=== PATIENT | male | born 1985 | race Caucasian/White ===

== ENCOUNTER 2023-01-17 21:47 | Emergency (ER) | payer SELFPAY ==
[2023-01-17] MEDS ORDERED: propofoL 100 ML ONE (21:58)
[2023-01-17] MEDS ORDERED: Sodium Chloride 0.9% 1,000 ML IV ONE ×2 (22:04→23:04)
[2023-01-17 22:12] LABS: BASOPHILS ABSOLUTE AUTO 0.07 K/mm3 (0.01-0.08); BASOPHILS PERCENT AUTO 0.6 % (0.1-1.2); EOSINOPHILS ABSOLUTE AUTO 0.08 K/mm3 (0.04-0.54); EOSINOPHILS PERCENT AUTO 0.7 (0.8-7.0); HEMOGLOBIN 16.5 gm/dl (13.7-17.5); IMMATURE GRAN ABSOLUTE AUTO 0.01 K/mm3 (0.00-0.10); IMMATURE GRAN PERCENT AUTO 0.1 % (<=1.0); LYMPHOCYTES ABSOLUTE AUTO 4.94 K/mm3 (1.32-3.57); LYMPHOCYTES PERCENT AUTO 42.8 % (21.8-53.1); MEAN CORPUSCULAR HGB CONC 33.7 g/dl (32.2-35.5); MEAN CORPUSCULAR VOLUME 89.1 fl (79.0-92.2); MEAN PLATELET VOLUME 10.4 fl (9.4-12.3); MONOCYTES ABSOLUTE AUTO 0.74 K/mm3 (0.30-0.82); MONOCYTES PERCENT AUTO 6.4 % (5.3-12.2); NEUTROPHILS ABSOLUTE AUTO 5.69 K/mm3 (1.78-5.38); NEUTROPHILS PERCENT AUTO 49.4 % (34.0-67.9); PLATELET COUNT,PLT 247 K/mm3 (163-337); WHITE BLOOD CELL COUNT,WBC 11.53 K/mm3 (4.23-9.07)
[2023-01-17] MEDS ORDERED: propofoL 100 ML IV SCH (22:15)
[2023-01-17 22:18] LABS: APPEARANCE,URINE CLEAR (Clear); BILIRUBIN,URINE NEGATIVE (Negative); COLOR,URINE LIGHT YELLOW (Yellow); GLUCOSE,URINE NEGATIVE (Negative); KETONES,URINE NEGATIVE (Negative); LEUKOCYTE ESTERASE,URINE NEGATIVE (Negative); NITRITE,URINE NEGATIVE (Negative); OCCULT BLOOD,URINE NEGATIVE (Negative); PH,URINE 6.5 (5.0-8.0); PROTEIN,URINE NEGATIVE (Negative); UROBILINOGEN,URINE 0.2 (0.2-1.0)
[2023-01-17 22:31] LABS: A/G RATIO 1.1 (1-2); ALBUMIN 4.2 g/dl (3.4-5.0); ANION GAP 14.9 (5-15); BILIRUBIN TOTAL 0.6 mg/dL (0.2-1.0); CALCIUM 8.2 mg/dL (8.5-10.1); CREATININE 0.8 mg/dL (0.7-1.3); EST CRCL DRUG DOSING (CG) 121.67 mL/min; ETHANOL BLOOD MEDICAL 0.37 gm% (0.00); POTASSIUM,K 2.9 mEq/L (3.5-5.1); TSH 1.864 uIU/mL (0.358-3.74)
[2023-01-17 22:32] LABS: BARBITURATE SCREEN,URINE NEGATIVE (CUTOFF=200); BENZODIAZEPINES SCREEN,URINE PRESUMPTIVE POSITIVE (CUTOFF=150); BUPRENORPHINE SCREEN,URINE NEGATIVE (CUTOFF=10); METHADONE SCREEN, URINE NEGATIVE (CUT0FF=200); METHAMPHETAMINES SCREEN, URINE NEGATIVE (CUTOFF=500); OXYCODONE SCREEN,URINE NEGATIVE (CUT0FF=100); PROPOXYPHENE SCREEN,URINE NEGATIVE (CUTOFF=300); THC SCREEN,URINE 20 NG/ML NEGATIVE (CUTOFF=50)
[2023-01-17 22:33] LABS: AMPHETAMINES SCREEN, URINE NEGATIVE (CUTOFF=500)
[2023-01-17] MEDS ORDERED: Succinylcholine 200 MG/10 ML MDV ONE (23:00)
[2023-01-17] MEDS ORDERED: Ketamine 500 mg/10 ML MDV ONE (23:00)
[2023-01-17] MEDS ORDERED: Rocuronium 50 MG/5 ML Vial ONE (23:00)
[2023-01-17] MEDS ORDERED: Calcium Gluconate 10% 1 GM/10 ML SDV IVPUSH PRN (23:08)
[2023-01-17] MEDS: Potassium Chloride 10 MEQ in Premix Bag 1 BAG IV SCH (23:21)
[2023-01-18] MEDS ORDERED: Sodium Chloride 0.9% 1,000 ML IV SCH (00:05)
[2023-01-18] MEDS ORDERED: Midazolam 1 MG/ML 5 ML SDV IVPUSH ONE (00:10)
[2023-01-18] MEDS: Potassium Chloride 10 MEQ in Premix Bag 1 BAG IV SCH (00:17)
[2023-01-18 00:29] LABS: BASE EXCESS ARTERIAL -8.7 (-2-2.0); BICARBONATE,ARTERIAL 27.8 meq/L (22.0-26.0); O2 SATURATION ARTERIAL 98.8 % (96.0-97.0)
[2023-01-18 00:31] LABS: PCO2 ARTERIAL 116.2 mmHg (35.0-45.0)
[2023-01-18 00:48] LABS: BASE EXCESS ARTERIAL -3.7 (-2-2.0); BICARBONATE,ARTERIAL 22.8 meq/L (22.0-26.0); O2 SATURATION ARTERIAL 96.3 % (96.0-97.0); PCO2 ARTERIAL 49.5 mmHg (35.0-45.0)
== END 2023-01-18 01:00 ==
LOC: JD.ED 21:47
DX: J96.90 Respiratory failure, unspecified, unspecified whether with hypoxia or hypercapnia (principal); T44.7X2A Poisoning by beta-adrenoreceptor antagonists, intentional self-harm, initial encounter; F10.90 Alcohol use, unspecified, uncomplicated; Y90.8 Blood alcohol level of 240 mg/100 ml or more; Z79.899 Other long term (current) drug therapy; Z88.8 Allergy status to other drugs, medicaments and biological substances
CPT/HCPCS: 31500; 36415; 36556; 36600; 43762; 51702; 70450; 71045; 80053; 80143; 80179; 80306; 80307; 81003; 82803; 83605; 84443; 85025; 93005; 96365; 96366; 99285; J0330; J2250; J2704; J3480; J3490; J7030; 93010

== ENCOUNTER 2023-02-18 16:26 | Emergency (ER) | payer SELFPAY ==
[2023-02-18] MEDS ORDERED: OLANZapine 10 MG Vial IM ONE (17:19)
[2023-02-18 18:22] LABS: HEMATOCRIT 44.6 % (40.1-51.0); HEMOGLOBIN 14.9 gm/dl (13.7-17.5); MEAN CORPUSCULAR HEMOGLOBIN 29.9 pg (25.7-32.2); MEAN CORPUSCULAR HGB CONC 33.4 g/dl (32.2-35.5); MEAN CORPUSCULAR VOLUME 89.6 fl (79.0-92.2); MEAN PLATELET VOLUME 10.1 fl (9.4-12.3); PLATELET COUNT,PLT 234 K/mm3 (163-337); RED BLOOD CELL COUNT 4.98 M/mm3 (4.63-6.08); WHITE BLOOD CELL COUNT,WBC 6.72 K/mm3 (4.23-9.07)
[2023-02-18 18:51] LABS: A/G RATIO 1.1 (1-2); BILIRUBIN TOTAL 0.5 mg/dL (0.2-1.0); BUN/CREATININE RATIO 23.3 (14-18); CALCIUM 8.6 mg/dL (8.5-10.1); CREATININE 0.6 mg/dL (0.7-1.3); EST CRCL DRUG DOSING (CG) 167.74 mL/min; ETHANOL BLOOD MEDICAL 0.1 gm% (0.00); PROTEIN TOTAL,TP 7.7 g/dl (6.4-8.2); TSH 0.266 uIU/mL (0.358-3.74)
[2023-02-18 19:22] LABS: BAND PERCENT MAN 0 % (0-10); BASOPHILS PERCENT MAN 0 (0.2-1.2); EOSINOPHILS PERCENT MAN 3 % (0.8-7.0); LYMPHOCYTES % ATYPICAL MANUAL 0 %; LYMPHOCYTES PERCENT MAN 37 % (20-40); MONOCYTES PERCENT MAN 2 % (2-10); PLATELET COUNT ESTIMATE ADEQUATE
[2023-02-18 22:12] LABS: BARBITURATE SCREEN,URINE NEGATIVE (CUTOFF=200); BENZODIAZEPINES SCREEN,URINE PRESUMPTIVE POSITIVE (CUTOFF=150); BUPRENORPHINE SCREEN,URINE NEGATIVE (CUTOFF=10); METHADONE SCREEN, URINE NEGATIVE (CUT0FF=200); METHAMPHETAMINES SCREEN, URINE NEGATIVE (CUTOFF=500); OXYCODONE SCREEN,URINE NEGATIVE (CUT0FF=100); PROPOXYPHENE SCREEN,URINE NEGATIVE (CUTOFF=300); THC SCREEN,URINE 20 NG/ML PRESUMPTIVE POSITIVE (CUTOFF=50)
[2023-02-18 22:14] LABS: AMPHETAMINES SCREEN, URINE NEGATIVE (CUTOFF=500)
[2023-02-19] MEDS ORDERED: Nicotine 21 MG/24 Hr Patch TRDERM ONE (11:58)
[2023-02-19] MEDS ORDERED: LORazepam 1 MG Tab PO ONE (12:36)
== END 2023-02-19 14:45 ==
LOC: JD.ED 16:26
DX: F19.10 Other psychoactive substance abuse, uncomplicated (principal); F10.10 Alcohol abuse, uncomplicated; R44.3 Hallucinations, unspecified; R45.851 Suicidal ideations; Z20.822 Contact with and (suspected) exposure to COVID-19; Y90.1 Blood alcohol level of 20-39 mg/100 ml
CPT/HCPCS: 36415; 80053; 80143; 80179; 80306; 80307; 84443; 85007; 85027; 87635; 93005; 96372; 99285; A9270; J2405; 93010; U0002

== ENCOUNTER 2023-02-26 14:12 | Emergency (ER) | payer SELFPAY ==
[2023-02-26 16:12] LABS: BASOPHILS ABSOLUTE AUTO 0.06 K/mm3 (0.01-0.08); BASOPHILS PERCENT AUTO 0.6 % (0.1-1.2); HEMATOCRIT 42.2 % (40.1-51.0); HEMOGLOBIN 14.3 gm/dl (13.7-17.5); IMMATURE GRAN ABSOLUTE AUTO 0.01 K/mm3 (0.00-0.10); IMMATURE GRAN PERCENT AUTO 0.1 % (<=1.0); LYMPHOCYTES ABSOLUTE AUTO 3.34 K/mm3 (1.32-3.57); LYMPHOCYTES PERCENT AUTO 32.2 % (21.8-53.1); MEAN CORPUSCULAR HEMOGLOBIN 29.9 pg (25.7-32.2); MEAN CORPUSCULAR HGB CONC 33.9 g/dl (32.2-35.5); MEAN CORPUSCULAR VOLUME 88.3 fl (79.0-92.2); MEAN PLATELET VOLUME 10.3 fl (9.4-12.3); MONOCYTES ABSOLUTE AUTO 1.04 K/mm3 (0.30-0.82); NEUTROPHILS ABSOLUTE AUTO 5.83 K/mm3 (1.78-5.38); NEUTROPHILS PERCENT AUTO 56.1 % (34.0-67.9); PLATELET COUNT,PLT 272 K/mm3 (163-337); RED BLOOD CELL COUNT 4.78 M/mm3 (4.63-6.08); WHITE BLOOD CELL COUNT,WBC 10.38 K/mm3 (4.23-9.07)
[2023-02-26 16:26] LABS: BARBITURATE SCREEN,URINE NEGATIVE (CUTOFF=200); BENZODIAZEPINES SCREEN,URINE NEGATIVE (CUTOFF=150); BUPRENORPHINE SCREEN,URINE NEGATIVE (CUTOFF=10); METHADONE SCREEN, URINE NEGATIVE (CUT0FF=200); METHAMPHETAMINES SCREEN, URINE NEGATIVE (CUTOFF=500); OXYCODONE SCREEN,URINE NEGATIVE (CUT0FF=100); PROPOXYPHENE SCREEN,URINE NEGATIVE (CUTOFF=300); THC SCREEN,URINE 20 NG/ML NEGATIVE (CUTOFF=50)
[2023-02-26 16:31] LABS: A/G RATIO 1.1 (1-2); ALBUMIN 3.7 g/dl (3.4-5.0); ANION GAP 14.2 (5-15); BILIRUBIN TOTAL 0.2 mg/dL (0.2-1.0); BUN/CREATININE RATIO 17.5 (14-18); CALCIUM 8.7 mg/dL (8.5-10.1); CREATININE 0.8 mg/dL (0.7-1.3); EST CRCL DRUG DOSING (CG) 130.26 mL/min; ETHANOL BLOOD MEDICAL 0.03 gm% (0.00); POTASSIUM,K 4.2 mEq/L (3.5-5.1); PROTEIN TOTAL,TP 7.1 g/dl (6.4-8.2)
[2023-02-26 16:43] LABS: AMPHETAMINES SCREEN, URINE NEGATIVE (CUTOFF=500)
== END 2023-02-26 19:05 | disposition home or self-care (01) ==
LOC: JD.ED 14:12
DX: F13.10 Sedative, hypnotic or anxiolytic abuse, uncomplicated (principal); Z88.8 Allergy status to other drugs, medicaments and biological substances
CPT/HCPCS: 36415; 80053; 80306; 80307; 85025; 99284